=== PATIENT | female | born 2005 | race Two or more races ===

== ENCOUNTER 2025-02-17 06:35 | Emergency (ER) | payer BC ==
[2025-02-17] MEDS ORDERED: Ondansetron PF 4 MG/2 ML Vial ONE (07:29)
[2025-02-17 07:58] LABS: #Basophils 0.07 10x3/uL (0.0-0.2); #Eosinophils 0.23 10x3/uL (0.0-0.5); #Monocytes 0.63 10x3/uL (0.0-1.1); #Neutrophils 6.84 10x3/uL (1.5-8.4); %Basophils 0.6 % (0.0-2.0); %Eosinophils 1.9 % (0.0-6.0); %Lymphocytes 34.6 % (18.0-47.0); %Monocytes 5.3 % (0.0-10.0); %Neutrophils 57.3 % (40.0-75.0); Hematocrit 39.2 % (34.9-44.5); Hemoglobin 12.6 g/dL (12.0-15.5); Mean Corpuscular Hemoglobin 25.5 pg (27.0-33.0); Mean Corpuscular Volume 79.2 fL (81.6-98.3); Platelet Count 334 10x3/uL (150-450); Red Blood Cell (RBC) Count 4.95 10x6/uL (3.90-5.03); White Blood Cell (WBC) Count 11.94 10x3/uL (3.5-10.5)
[2025-02-17 08:12] LABS: BHCG - Serum Negative (NEGATIVE); Pregs Control Background? CLEAR/WHITE (CLR/WHITE); Pregs Control Bar Appear? YES (CONTROL BAR)
[2025-02-17 08:19] LABS: ALT (SGPT) 12 U/L (Less than 34); AST (SGOT) 17 U/L (11-34); Albumin 4.2 g/dL (3.1-4.5); Alkaline Phosphatase 54 U/L (40-100); Anion Gap 14 mmol/L (10-20); BUN (Urea Nitrogen) 15 mg/dL (7.0-18.7); Bilirubin, Total 0.2 mg/dL (0.3-1.2); Calc. Creatinine Clearance 0 mL/min (70-130); Calcium 9.2 mg/dL (7.8-10.44); Carbon Dioxide 23 mmol/L (22-29); Chloride 105 mmol/L (98-107); Globulin 3.3 g/dL (2.4-3.5); Glucose 101 mg/dL (70-105); Lipase 72 U/L (8-78); Potassium 3.8 mmol/L (3.5-5.1); Sodium 138 mmol/L (136-145)
== END 2025-02-17 09:08 | disposition home or self-care (01) ==
LOC: CSHERS 06:35 → EDBD 06:35 → CSHERS 09:08
DX: K80.50 Calculus of bile duct without cholangitis or cholecystitis without obstruction (principal)
CPT/HCPCS: 36415; 76705; 80053; 83690; 84703; 85025; 93005; 96372; 96374; J2405

== ENCOUNTER 2025-03-18 13:59 | Outpatient (CLI) | payer BC ==
[2025-03-18 16:22] LABS: BHCG - Serum Negative (NEGATIVE); Pregs Control Background? CLEAR/WHITE (CLR/WHITE); Pregs Control Bar Appear? YES (CONTROL BAR)
== END 2025-03-18 14:00 | disposition home or self-care (01) ==
LOC: CSHLAB 13:59
PROVIDERS: ATTEND Surgery
DX: Z01.812 Encounter for preprocedural laboratory examination (principal); K80.50 Calculus of bile duct without cholangitis or cholecystitis without obstruction
CPT/HCPCS: 84703

== ENCOUNTER 2025-03-21 06:07 | Day surgery (SDC) | payer BC ==
[2025-03-18 14:26] VITALS: BMI 35.3
[2025-03-21] MEDS ORDERED: Bupivacaine/Epinephrine 0.25% 30 ML VIAL ONE (06:47)
[2025-03-21] MEDS ORDERED: CEFAZOLIN 2 GM VIAL ONE (07:15)
[2025-03-21] MEDS ORDERED: Rocuronium Bromide 10 MG/ML (10ML VIAL) ONE (07:16)
[2025-03-21] MEDS ORDERED: Lidocaine 1% PF 5 ML VIAL ONE (07:16)
[2025-03-21] MEDS ORDERED: PROPOFOL 20 ML ONE (07:16)
[2025-03-21] MEDS ORDERED: Ondansetron PF 4 MG/2 ML Vial ONE ×2 (07:40→08:33)
[2025-03-21] MEDS ORDERED: SUGAMMADEX SODIUM 200 MG/2 ML VIAL ONE (08:09)
[2025-03-21] MEDS ORDERED: HYDROmorphone 0.5 MG/0.5 ML SYRINGE ONE (08:58)
[2025-03-21] MEDS ORDERED: oxyCODONE 5 MG TAB ONE (09:36)
== END 2025-03-21 10:25 | disposition home or self-care (01) ==
LOC: CSHSDC 06:07
PROVIDERS: ATTEND Surgery
PROC: 0FT44ZZ Resection of Gallbladder, Percutaneous Endoscopic Approach (ICD-10-PCS; principal; 2025-03-21)
DX: K80.64 Calculus of gallbladder and bile duct with chronic cholecystitis without obstruction (principal)
CPT/HCPCS: 88304; C1889; J1100; J1171; J2250; J2704; S2900